=== PATIENT | female | born 1945 | race Hispanic/Latino ===

== ENCOUNTER 2017-01-07 19:07 | Inpatient (IN) | payer SELFPAY ==
[~2017-01-07] VITALS: Ht 154.9 cm; Wt 73.6 kg
[2017-01-07] VITALS (11 sets, daily range): BP systolic 74–128; BP diastolic 37–74
[2017-01-07] MEDS ORDERED: NS IV 1000 ML 1,000 ML IV ONE ×3 (19:23→20:06)
[2017-01-07 19:37] LABS: BASOPHILS % (AUTO) 0 % (0-10); EOSINOPHILS % (AUTO) 0 % (0-10); LYMPHOCYTES # (AUTO) 1.1 X 10^3 (1.0-4.0); LYMPHOCYTES % (AUTO) 50 % (12-44); MEAN CORPUSCULAR HEMOGLOBIN 33 PG (25-34); MEAN CORPUSCULAR HGB CONC 32 G/DL (32-36); MEAN CORPUSCULAR VOLUME 101 FL (80-99); MEAN PLATELET VOLUME 9.7 FL (7.4-10.4); MONOCYTES % (AUTO) 1 % (0-12); NEUTROPHILS # (AUTO) 1.1 X 10^3 (1.8-7.8); NEUTROPHILS % (AUTO) 50 % (42-75); PLATELET COUNT 161 10^3/uL (130-400); RED BLOOD COUNT 4.21 10^6/uL (4.35-5.85); RED CELL DISTRIBUTION WIDTH 14.6 % (10.0-14.5); WHITE BLOOD COUNT 2.1 10^3/uL (4.3-11.0)
[2017-01-07 19:38] LABS: ABG BASE EXCESS -4.8 MMOL/L (-2.5-2.5); ABG HCO3 19 MMOL/L (23-27); ABG OXYGEN SATURATION 100 % (94-100); ABG PCO2 32 MMHG (35-45); ABG PO2 214 MMHG (79-93); ABG TCO2 19.7 MMOL/L (21.0-31.0)
[2017-01-07 19:39] LABS: ALLENS TEST POSITIVE; PATIENT TEMP 101.6
[2017-01-07] MEDS ORDERED: ROCURONIUM 50 MG/5 ML (ZEMURON) VIAL IV ONE ×2 (19:40→20:30)
[2017-01-07] MEDS ORDERED: MIDAZOLAM 5 MG/5 ML (VERSED) VIAL INJ ONE (19:40)
[2017-01-07] MEDS ORDERED: SODIUM BICARB 8.4% 50 MEQ/50 ML (ABBOTT) SYR ONE (19:43)
[2017-01-07] MEDS ORDERED: NS (IVPB) 50 ML ONE (19:44)
[2017-01-07] MEDS ORDERED: cefTRIAXone 1 GM (ROCEPHIN) VIAL ONE (19:44)
[2017-01-07] MEDS ORDERED: ACETAMINOPHEN 650 MG SUPP (TYLENOL) PR ONE (19:45)
[2017-01-07 20:09] LABS: INR 1.1 (0.8-1.4)
[2017-01-07 20:11] LABS: KETONES,URINE 1+ (NEGATIVE); LEUKOCYTE ESTERASE ,URINE 3+ (NEGATIVE); NITRITE,URINE POSITIVE (NEGATIVE); PH,URINE 6.5 (5-9); PROTEIN,URINE 4+ (NEGATIVE); UROBILINOGEN,URINE 4 MG/DL (NORMAL)
--- NOTE | 2017-01-07 20:15 | ED General ---
General Chief Complaint: Respiratory Problems Stated Complaint: BACK AND ABD PAIN Nursing Triage Note: BROUGHT IN BY FAMILY WITH LABORED RESPIRATIONS, FEVER SINCE 0600 01/07/17. FAMILY REPORTS LOWER ABDOMINAL PAIN STARTING 01/06/17 Nursing Sepsis Screen: Possible Severe Sepsis Risk Source of Information: Family Exam Limitations: Language Barrier, Other (PT IS OBTUNDED AND FAMILY MEMBERS SPEAK MINIMAL GERMAN) History of Present Illness Time Seen by Provider: 19:17 Initial Comments PT ARRIVES VIA POV FROM HOME FAMILY REPORT THAT PT HAS HAD LOWER ABDOMINAL PAIN AND LOWER BACK PAIN SINCE YESTERDAY WAS SEEN AT [facility] TODAY FOR THIS BUT FAMILY REPORTS THAT NO TESTS WERE DONE AND NO RX'S WERE GIVEN FAMILY REPORT THAT SHE HAS BEEN COLD ALL DAY NO OTHER INFORMATION IS OBTAINABLE FAMILY REPORT HER ONLY MEDICAL PROBLEM IS DIABETES, AND DO NOT KNOW WHAT MEDICATION SHE TAKES FOR IT. PT IS OBTUNDED AND IN RESPIRATORY DISTRESS WITH SNOROUS AND VERY LABORED BREATHING ON ARRIVAL Allergies and Home Medications Allergies Coded Allergies: No Known Drug Allergies (Unverified , 01/07/17) Constitutional: see HPI, chills, other (NO INFORMATION IS OBTAINABLE FROM PT) Gastrointestinal: abdominal pain Musculoskeletal: see HPI, back pain Past Rdvmpdu-Neklnp-Lmizza Hx Patient Social History Alcohol Use: Denies Use Recreational Drug Use: No Smoking Status: Never a Smoker Recent Foreign Travel: No Contact w/Someone Who Travel: No Recent Infectious Disease Expo: No Recent Hopitalizations: No Immunizations Up To Date Tetanus Booster (TDap): Unknown Seasonal Allergies Seasonal Allergies: No Surgeries HX Surgeries: Yes (UNKNOWN ABDOMINAL SURGERY--HAS LOW ABDOMEN MIDLINE SCAR) Respiratory Hx Respiratory Disorders: No Cardiovascular Hx Cardiac Disorders: No Neurological Hx Neurological Disorders: No 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 Genitourinary Hx Genitourinary Disorders: No Gastrointestinal Hx Gastrointestinal Disorders: No Musculoskeletal Hx Musculoskeletal Disorders: No Endocrine Hx Endocrine Disorders: Yes Endocrine Disorders: Diabetes, Insulin dep HEENT HX ENT Disorders: No Cancer Hx Cancer: No Psychosocial Hx Psychiatric Problems: No Integumentary HX Skin/Integumentary Disorder: No Blood Transfusions Hx Blood Disorders: No Physical Exam Vital Signs Vital Sign - Last 12Hours 01/07/17 01/07/17 19:21 19:52 Temp 101.6 Pulse 122 Resp 36 B/P (MAP) 129/63 Pulse Ox 84 O2 Delivery Nonrebreather O2 Flow Rate 15.00 FiO2 60 Capillary Refill : Greater Than 3 Seconds General Appearance: Severe Distress, Other (PT OBTUNDED WITH SNOROUS AND VERY LABORED BREATHING. PT BEGAN TO VOMIT SHORTLY AFTER ARRIVAL AND WAS HAVING DECORTICATE POSTURING VS TONIC-SEIZURE ACTIVITY. ) HEENT: Other (DRY ORAL MUCOSA. DENTURES IN PLACE) Respiratory: Respiratory Distress Cardiovascular: Tachycardia Gastrointestinal: Soft Extremity: No Pedal Edema Neurologic/Psychiatric: Other (OBTUNDED WITH DECORTICATE POSTURING VS TONIC SEIZURE ACTIVITY) Skin: No Rash, Other (VERY WARM. ) Focused Exam Lactic Acid Level Laboratory Tests Test 01/07/17 19:50 Lactic Acid Level 6.78 MMOL/L (0.50-2.00) *H Date of ETT Placement: Jan 07, 2017 Intubation Method: orotracheal Tube Size: 7.00 Medications: Rocuronium, Versed Positive End Tide CO2: Yes Breath Sounds after Intubation: bilateral-equal Intubation Complications: no complications Post Intubation Xray: Yes Progress/Xray Impression: ET TUBE AND NG TUBE IN PLACE Progress PT HAD VOMITED PRIOR TO BEING INTUBATED. PT SUCTIONED VIGOROUSLY BEFORE INTUBATION, AND WAS ALSO SUCTIONED VIA ET TUBE POST INTUBATION, WITH MOSTLY CLEAR MUCOUS RETURNED FROM ET TUBE. O2 SATS 100% WITH BAGGING PRE AND POST INTUBATION, AND REMAINED 100% AFTER VENTILATOR PLACED. Progress/Results/Core Measures Results/Orders Lab Results Laboratory Tests Test 01/07/17 19:20 01/07/17 19:27 01/07/17 19:31 01/07/17 19:50 Range/Units Glucometer 269 H 70-110 MG/DL White Blood Count 2.1 L 4.3-11.0 10^3/uL Red Blood Count 4.21 L 4.35-5.85 10^6/uL Hemoglobin 13.7 11.5-16.0 G/DL Hematocrit 42 35-52 % Mean Corpuscular Volume 101 H 80-99 FL Mean Corpuscular Hemoglobin 33 25-34 PG Mean Corpuscular Hemoglobin Concent 32 32-36 G/DL Red Cell Distribution Width 14.6 H 10.0-14.5 % Platelet Count 161 130-400 10^3/uL Mean Platelet Volume 9.7 7.4-10.4 FL Neutrophils (%) (Auto) 50 42-75 % Lymphocytes (%) (Auto) 50 H 12-44 % Monocytes (%) (Auto) 1 0-12 % Eosinophils (%) (Auto) 0 0-10 % Basophils (%) (Auto) 0 0-10 % Neutrophils # (Auto) 1.1 L 1.8-7.8 X 10^3 Lymphocytes # (Auto) 1.1 1.0-4.0 X 10^3 Monocytes # (Auto) 0.0 0.0-1.0 X 10^3 Eosinophils # (Auto) 0.0 0.0-0.3 10^3/uL Basophils # (Auto) 0.0 0.0-0.1 10^3/uL Blood Gas Puncture Site RIGHT RADIAL Blood Gas Patient Temperature 101.6 Arterial Blood pH 7.40 7.37-7.43 Arterial Blood Partial Pressure CO2 32 L 35-45 MMHG Arterial Blood Partial Pressure O2 214 H 79-93 MMHG Arterial Blood HCO3 19 L 23-27 MMOL/L Arterial Blood Total CO2 19.7 L 21.0-31.0 MMOL/L Arterial Blood Oxygen Saturation 100 94-100 % Arterial Blood Base Excess -4.8 L -2.5-2.5 MMOL/L Kaushal Test POSITIVE Blood Gas Ventilator Setting NO Blood Gas Inspired Oxygen 15 Prothrombin Time 14.0 12.2-14.7 SEC INR Comment 1.1 0.8-1.4 Activated Partial Thromboplast Time 26 24-35 SEC Sodium Level 137 135-145 MMOL/L Potassium Level 4.4 3.6-5.0 MMOL/L Chloride Level 100 98-107 MMOL/L Carbon Dioxide Level 18 L 21-32 MMOL/L Anion Gap 19 H 5-14 MMOL/L Blood Urea Nitrogen 21 H 7-18 MG/DL Creatinine 0.97 0.60-1.30 MG/DL Estimat Glomerular Filtration Rate 57 BUN/Creatinine Ratio 22 H 0-20 Glucose Level 303 H 70-105 MG/DL Lactic Acid Level 6.78 *H 0.50-2.00 MMOL/L Calcium Level 8.6 8.5-10.1 MG/DL Magnesium Level 1.7 L 1.8-2.4 MG/DL Total Bilirubin 2.4 H 0.1-1.0 MG/DL Aspartate Amino Transf (AST/SGOT) 47 H 5-34 U/L Alanine Aminotransferase (ALT/SGPT) 34 0-55 U/L Alkaline Phosphatase 118 40-136 U/L Total Creatine Kinase 32 29-168 U/L Creatine Kinase MB 0.6 <6.6 NG/ML Troponin I < 0.30 <0.30 NG/ML Total Protein 7.8 6.4-8.2 GM/DL Albumin 3.9 3.2-4.5 GM/DL Amylase Level 67 25-125 U/L Lipase 23 8-78 U/L TSH [place] Testing 1.30 0.35-4.94 UIU/ML Test 01/07/17 20:05 01/07/17 20:25 Range/Units Urine Color CASEY H Urine Clarity SLIGHTLY CLOUDY Urine pH 6.5 5-9 Urine Specific [place] 1.010 L 1.016-1.022 Urine Protein 4+ NEGATIVE Urine Glucose (UA) 2+ H NEGATIVE Urine Ketones 1+ H NEGATIVE Urine Nitrite POSITIVE H NEGATIVE Urine Bilirubin 2+ H NEGATIVE Urine Urobilinogen 4 H NORMAL MG/DL Urine Leukocyte Esterase 3+ H NEGATIVE Urine RBC (Auto) 5+ H NEGATIVE Urine RBC 5-10 H /HPF Urine WBC TNTC H /HPF Urine Squamous Epithelial Cells NONE /HPF Urine Crystals PRESENT H /LPF Urine Amorphous Sediment MOD JEFFY URATES H /LPF Urine Bacteria LARGE H /HPF Urine Casts NONE /LPF Urine Mucus SMALL H /LPF Urine Culture Indicated YES Blood Gas Puncture Site RIGHT RADIAL Blood Gas Patient Temperature 102.9 Arterial Blood pH 7.37 7.37-7.43 Arterial Blood Partial Pressure CO2 43 35-45 MMHG Arterial Blood Partial Pressure O2 188 H 79-93 MMHG Arterial Blood HCO3 24 23-27 MMOL/L Arterial Blood Total CO2 25.0 21.0-31.0 MMOL/L Arterial Blood Oxygen Saturation 100 94-100 % Arterial Blood Base Excess -0.2 -2.5-2.5 MMOL/L Kaushal Test POSITIVE Blood Gas Ventilator Setting YES Blood Gas Inspired Oxygen 60% My Orders Orders - ALEJANDRO PRINCE DO Accucheck Stat ONCE (01/07/17 19:23) Saline Lock/Iv-Start (01/07/17 19:23) Ekg Tracing (01/07/17 19:23) Catheter(Urinary) Insert & Ass 03,15 (01/07/17 19:23) O2 (01/07/17 19:23) Monitor-Rhythm Ecg Trace Only (01/07/17 19:23) Amylase (01/07/17 19:23) Arterial Blood Gas (01/07/17 19:23) Cbc With Automated Diff (01/07/17:23) Comprehensive Metabolic Panel (01/07/17:23) Creatine Kinase (01/07/17 19:23) Creatine Kinase Mb (01/07/17 19:23) Lactic Acid Analyzer (01/07/17:23) Lipase (01/07/17:23) Magnesium (01/07/17:) Protime With Inr (01/07/17:) Partial Thromboplastin Time (01/07/17:23) Thyroid Analyzer (01/07/17:) Troponin I (01/07/17:) Ua Culture If Indicated (01/07/17:) Blood Culture (01/07/17:23) Chest 1 View, Ap/Pa Only (01/07/17:23) Rt Request For Service (01/07/17:23) Saline Lock/Iv-Start (01/07/17 19:23) Ns Iv 1000 Ml (Sodium Chloride 0.9%) (01/07/17 19:23) Ng Tube Insert & Assessment (01/07/17 19:43) Acetaminophen Suppository (Tylenol Suppo (01/07/17 19:45) Sodium Bicarbonate 8.4% Syr (Sodium Bica (01/07/17 19:43) Ceftriaxone Injection (Rocephin Injectio (01/07/17 19:44) Ns (Ivpb) (Sodium Chloride 0.9% Ivpb Bag (01/07/17 19:44) Saline Lock/Iv-Start (01/07/17 20:06) Ns Iv 1000 Ml (Sodium Chloride 0.9%) (01/07/17 20:06) Saline Lock/Iv-Start (01/07/17 20:06) Ns Iv 1000 Ml (Sodium Chloride 0.9%) (01/07/17 20:06) Arterial Blood Gas (01/07/17 20:07) Midazolam Injection (Versed Injection) (01/07/17 20:30) Rocuronium Injection (Zemuron Injection) (01/07/17 20:30) Urine Culture (01/07/17 20:05) Magnesium 1 Gm/100 Ml Ivpb (Magnesium Grewal (01/07/17 20:45) Medications Given in ED Current Medications Medications Dose Ordered Sig/Abhishek Route Start Time Stop Time Status Last Admin Dose Admin Acetaminophen 1,300 mg ONCE ONCE FL 01/07/17 19:45 01/07/17 19:46 DC 01/07/17 19:47 1,300 MG Ceftriaxone Sodium 1,000 mg STK-MED ONCE .ROUTE 01/07/17 19:44 01/07/17 19:50 DC 01/07/17 19:55 1,000 MG Midazolam HCl 8 mg ONCE ONCE IVP 01/07/17 20:30 01/07/17 20:31 DC 01/07/17 19:32 8 MG Rocuronium [place] 40 mg ONCE ONCE IV 01/07/17 20:30 01/07/17 20:31 DC 01/07/17 19:32 40 MG Sodium Bicarbonate 50 meq STK-MED ONCE .ROUTE 01/07/17 19:43 01/07/17 19:49 DC 01/07/17 19:48 50 MEQ Sodium Chloride 50 ml @ ud STK-MED ONCE .ROUTE 01/07/17 19:44 01/07/17 19:50 DC 01/07/17 19:55 100 MLS/HR Sodium Chloride 1,000 ml @ 0 mls/hr Q0M ONCE IV 01/07/17 19:23 01/07/17 19:27 DC 01/07/17 19:45 0 MLS/HR Sodium Chloride 1,000 ml @ 0 mls/hr Q0M ONCE IV 01/07/17 20:06 01/07/17 20:08 DC 01/07/17 20:08 0 MLS/HR Sodium Chloride 1,000 ml @ 0 mls/hr Q0M ONCE IV 01/07/17 20:06 01/07/17 20:08 DC 01/07/17 20:08 0 MLS/HR Vital Signs/I&O Vital Sign - Last 12Hours 01/07/17 01/07/17 01/07/17 01/07/17 19:21 19:21 19:47 19:52 Temp 101.6 101.6 Pulse 122 154 Resp 36 14 B/P (MAP) 129/63 Pulse Ox 84 84 100 O2 Delivery Nonrebreather Non Rebreather O2 Flow Rate 15.00 15.00 FiO2 60 Blood Pressure Mean: 85 Progress Note : Progress Note PT'S BP REMAINED > 90 SYSTOLIC DURING ER STAY HEART RATE DOWN TO 110-120'S AFTER FLUID BOLUSES. DISCUSSED THE CRITICAL CONDITION OF PT WITH HER FAMILY. ALSO INFORMED THEM THAT SHE COULD POSSIBLY FROM THIS. THEY APPEAR TO UNDERSTAND. PT IS TO BE A FULL CODE. PASTORAL CARE CALLED. ECG Initial ECG Impression Time: 19:55 Initial ECG Rate: 152 Initial ECG Rhythm: S.Tach Initial ECG Impression: SVT Initial ECG Comparisson: No Previous ECG Available Diagnostic Imaging Comments CXR--ET TUBE AND NG TUBE IN PLACE, NO ACUTE PROCESS. PER RADIOLOGIST REPORT @ 2050 Reviewed: Reviewed by Me Critical Care Note Critical Care Total Time (minutes) 1 HOUR Departure Communication Progress Notes 2019--SPOKE WITH DR. HART, SMELTING ENGINEER FOR [facility]. ACCEPTS PT FOR ADMIT Impression Impression: Primary Impression: Severe sepsis with septic shock Additional Impressions: UTI (urinary tract infection) Dehydration Diabetes Hypomagnesemia Acute respiratory failure Neutropenia Lactic acidosis Disposition: ADMITTED INPATIENT Condition: Critical Decision to Admit Reason: Admit from ER (General) Decision to Admit/Date: Jan 07, 2017 Time/Decision to Admit Time: 20:20 Departure-Patient Inst. Referrals: NO,LOCAL PHYSICIAN (PCP) Primary Care Physician ALEJANDRO PRINCE DO Jan 07, 2017 20:14
[2017-01-07 20:17] LABS: WBC,URINE TNTC /HPF
[2017-01-07 20:21] LABS: ALANINE AMINOTRANSFERASE 34 U/L (0-55); ALBUMIN 3.9 GM/DL (3.2-4.5); AMYLASE 67 U/L (25-125); ANION GAP 19 MMOL/L (5-14); ASPARTATE AMINO TRANSFERASE 47 U/L (5-34); BILIRUBIN,TOTAL 2.4 MG/DL (0.1-1.0); BLOOD UREA NITROGEN 21 MG/DL (7-18); BUN/CREATININE RATIO 22 (0-20); CALCIUM 8.6 MG/DL (8.5-10.1); CARBON DIOXIDE 18 MMOL/L (21-32); CHLORIDE 100 MMOL/L (98-107); CREATINE KINASE 32 U/L (29-168); CREATININE SERUM 0.97 MG/DL (0.60-1.30); GFR ESTIMATED 57; GLUCOSE 303 MG/DL (70-105); HEMOLYSIS 43 (-100-29); LIPASE 23 U/L (8-78); LIPEMIA 3 (-100-49); MAGNESIUM 1.7 MG/DL (1.8-2.4); POTASSIUM 4.4 MMOL/L (3.6-5.0); SODIUM 137 MMOL/L (135-145); TOTAL PROTEIN 7.8 GM/DL (6.4-8.2)
--- NOTE | 2017-01-07 20:23 | Diagnostic Imaging Report ---
INDICATION: Intubated, shortness of breath COMPARISON: None FINDINGS: Single view of the chest demonstrates ET tube in the midtrachea. There is an NG tube in the stomach. The lungs are clear. There is no pneumothorax, effusion or infiltrate. There is no overt pulmonary edema. IMPRESSION: Well-positioned support lines. No acute cardiopulmonary findings. Dictated by: Dictated on workstation # [id number]
[2017-01-07] MEDS ORDERED: MIDAZOLAM 5 MG/5 ML (VERSED) VIAL IVP ONE ×2 (20:30→21:15)
[2017-01-07 20:40] LABS: TROPONIN I < 0.30 NG/ML (<0.30)
[2017-01-07 20:45] LABS: ABG BASE EXCESS -0.2 MMOL/L (-2.5-2.5); ABG HCO3 24 MMOL/L (23-27); ABG OXYGEN SATURATION 100 % (94-100); ABG PCO2 43 MMHG (35-45); ABG PH 7.37 (7.37-7.43); ABG PO2 188 MMHG (79-93); ALLENS TEST POSITIVE
[2017-01-07 20:46] LABS: PATIENT TEMP 102.9
[2017-01-07] MEDS: MAGNESIUM 1 GM/100 ML IVPB 100 ML IV SCH ×2 (20:46→22:30)
[2017-01-07] MEDS ORDERED: NS IV 1000 ML 1,000 ML IV PRN (21:40)
[2017-01-07] MEDS ORDERED: ACETAMINOPHEN 650 MG SUPP (TYLENOL) PR PRN (21:45)
[2017-01-07] MEDS ORDERED: PHARMACY TO DOSE IV SCH (21:45)
[2017-01-07] MEDS ORDERED: cefTRIAXone INJECTION 1,000 MG in NS (IVPB) 50 ML IV SCH (21:45)
[2017-01-07] MEDS ORDERED: NS IV 1000 ML 2,500 ML IV PRN (21:45)
[2017-01-07] MEDS ORDERED: KETOROLAC 30 MG/ML VIAL IV ONE (22:00)
[2017-01-07] MEDS ORDERED: PANTOPRAZOLE 40 MG/10 ML (PROTONIX) VIAL ONE (22:11)
[2017-01-07] MEDS: PANTOPRAZOLE 40 MG/10 ML (PROTONIX) VIAL IV SCH (22:21)
[2017-01-07] MEDS: NS IV 1000 ML 1,000 ML IV SCH (22:29)
[2017-01-07] MEDS ORDERED: ALBUMIN 5% 12.5 GM/250 ML 500 ML IV ONE (22:31)
[2017-01-07] MEDS ORDERED: MAGNESIUM 1 GM/D5W 100 ML IVPB IV SCH (23:00)
[2017-01-07 23:07] LABS: ABG BASE EXCESS -0.2 MMOL/L (-2.5-2.5); ABG HCO3 24 MMOL/L (23-27); ABG OXYGEN SATURATION 100 % (94-100); ABG PCO2 36 MMHG (35-45); ABG PH 7.43 (7.37-7.43); ABG PO2 162 MMHG (79-93); ABG TCO2 24.7 MMOL/L (21.0-31.0)
[2017-01-07 23:10] LABS: ALLENS TEST YES-POS; PATIENT TEMP 102
[2017-01-07] MEDS: NOREPINEPHRINE 4 MG in D5W 250 ML (IVPB) 250 ML IV SCH (23:28)
[2017-01-08] VITALS (20 sets, daily range): BP systolic 53–141; BP diastolic 28–72
[2017-01-08] MEDS: VANCOMYCIN 1 GM/NS 250 ML IVPB IV SCH ×4 (00:25→09:34)
--- NOTE | 2017-01-08 00:41 | Consultation ---
History of Present Illness History of Present Illness Patient Consulted On(daljit/time) 01/07/17 23:35 Date of Admission History of Present Illness consult requested by Dr. Tamayo for central line placement. Patient is a 71 year old female who is intubated. She came and it was reported she was having lower abdominal pain since 01/06. Started having fever and not feeling any better today. Came into ER today and had acute respiratory failure had to be intubated and hypotensive. Patient on pressors. Patient unable to communicate any history. Patient needing central line placement for pressor support. Family present and limited knowledge of medical history, platform builder used and consent obtained for central line placement. Allergies and Home Medications Allergies Coded Allergies: No Known Drug Allergies (Unverified , 01/07/17) Past Tpinvka-Qipstg-Uhcrgq Hx Patient Social History Alcohol Use: Denies Use Recreational Drug Use: No Smoking Status: Never a Smoker Recent Foreign Travel: No Contact w/Someone Who Travel: No Recent Infectious Disease Expo: No Recent Hopitalizations: No Immunizations Up To Date Tetanus Booster (TDap): Unknown Seasonal Allergies Seasonal Allergies: No Surgeries HX Surgeries: Yes (UNKNOWN ABDOMINAL SURGERY--HAS LOW ABDOMEN MIDLINE SCAR) Respiratory Hx Respiratory Disorders: No Cardiovascular Hx Cardiac Disorders: No Neurological Hx Neurological Disorders: No 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 Genitourinary Hx Genitourinary Disorders: No Gastrointestinal Hx Gastrointestinal Disorders: No Musculoskeletal Hx Musculoskeletal Disorders: No Endocrine Hx Endocrine Disorders: Yes Endocrine Disorders: Diabetes, Insulin dep HEENT HX ENT Disorders: No Cancer Hx Cancer: No Psychosocial Hx Psychiatric Problems: No Integumentary HX Skin/Integumentary Disorder: No Blood Transfusions Hx Blood Disorders: No Family Medical History Significant Family History: No Pertinent Family Hx Review of Systems-General Date Seen by Provider: Jan 07, 2017 Time Seen by Provider: 23:35 ROS-Unable to Obtain: patient intubated Physical Exam-General Problems Physical Exam Vital Signs Vital Sign - Last 12Hours 01/07/17 01/07/17 19:21 19:52 Temp 101.6 Pulse 122 Resp 36 B/P (MAP) 129/63 Pulse Ox 84 O2 Delivery Nonrebreather O2 Flow Rate 15.00 FiO2 60 Capillary Refill : Less Than 3 Seconds General Appearance: other (intubated) HEENT: PERRL/EOMI Neck: supple Respiratory: lungs clear Cardiovascular: regular rate, rhythm Gastrointestinal: soft, No distended, No guarding, No rebound, No tenderness Extremities: non-tender, normal inspection Neurologic/Psychiatric: No alert, other (intubated) Skin: cool (dry) Data Review Labs Laboratory Tests 01/07/17 19:20: Glucometer 269H 01/07/17 19:27: White Blood Count 2.1L, Red Blood Count 4.21L, Hemoglobin 13.7, Hematocrit 42, Mean Corpuscular Volume 101H, Mean Corpuscular Hemoglobin 33, Mean Corpuscular Hemoglobin Concent 32, Red Cell Distribution Width 14.6H, Platelet Count 161, Mean Platelet Volume 9.7, Neutrophils (%) (Auto) 50, Lymphocytes (%) (Auto) 50H , Monocytes (%) (Auto) 1, Eosinophils (%) (Auto) 0, Basophils (%) (Auto) 0, Neutrophils # (Auto) 1.1L, Lymphocytes # (Auto) 1.1, Monocytes # (Auto) 0.0, Eosinophils # (Auto) 0.0, Basophils # (Auto) 0.0 01/07/17 19:31: Blood Gas Puncture Site RIGHT RADIAL, Blood Gas Patient Temperature 101.6, Arterial Blood pH 7.40, Arterial Blood Partial Pressure CO2 32L, Arterial Blood Partial Pressure O2 214H, Arterial Blood HCO3 19L, Arterial Blood Total CO2 19.7L, Arterial Blood Oxygen Saturation 100, Arterial Blood Base Excess -4.8L, Kaushal Test POSITIVE, Blood Gas Ventilator Setting NO, Blood Gas Inspired Oxygen 15 01/07/17 19:50: Prothrombin Time 14.0, INR Comment 1.1, Activated Partial Thromboplast Time 26, Sodium Level 137, Potassium Level 4.4, Chloride Level 100, Carbon Dioxide Level 18L, Anion Gap 19H, Blood Urea Nitrogen 21H, Creatinine 0.97, Estimat Glomerular Filtration Rate 57, BUN/Creatinine Ratio 22H, Glucose Level 303H, Lactic Acid Level 6.78*H, Calcium Level 8.6, Magnesium Level 1.7L, Total Bilirubin 2.4H, Aspartate Amino Transf (AST/SGOT) 47H, Alanine Aminotransferase (ALT/SGPT) 34, Alkaline Phosphatase 118, Total Creatine Kinase 32, Creatine Kinase MB 0.6, Troponin I < 0.30, Total Protein 7.8, Albumin 3.9, Amylase Level 67, Lipase 23, TSH [place] Testing 1.30 01/07/17 20:05: Urine Color AMBERH, Urine Clarity SLIGHTLY CLOUDY, Urine pH 6.5, Urine Specific [place] 1.010L, Urine Protein 4+, Urine Glucose (UA) 2+H, Urine Ketones 1+H, Urine Nitrite POSITIVEH, Urine Bilirubin 2+H, Urine Urobilinogen 4H, Urine Leukocyte Esterase 3+H, Urine RBC (Auto) 5+H, Urine RBC 5-10H, Urine WBC TNTCH, Urine Squamous Epithelial Cells NONE, Urine Crystals PRESENTH, Urine Amorphous Sediment MOD JEFFY URATESH, Urine Bacteria LARGEH, Urine Casts NONE, Urine Mucus SMALLH, Urine Culture Indicated YES 01/07/17 20:25: Blood Gas Puncture Site RIGHT RADIAL, Blood Gas Patient Temperature 102.9, Arterial Blood pH 7.37, Arterial Blood Partial Pressure CO2 43, Arterial Blood Partial Pressure O2 188H, Arterial Blood HCO3 24, Arterial Blood Total CO2 25.0 , Arterial Blood Oxygen Saturation 100, Arterial Blood Base Excess -0.2, Kaushal Test POSITIVE, Blood Gas Ventilator Setting YES, Blood Gas Inspired Oxygen 60% 01/07/17 22:13: Lactic Acid Level 3.89*H 01/07/17 22:52: Blood Gas Puncture Site R RAD, Blood Gas Patient Temperature 102, Arterial Blood pH 7.43, Arterial Blood Partial Pressure CO2 36, Arterial Blood Partial Pressure O2 162H, Arterial Blood HCO3 24, Arterial Blood Total CO2 24.7, Arterial Blood Oxygen Saturation 100, Arterial Blood Base Excess -0.2, Kaushal Test YES-POS, Blood Gas Ventilator Setting YES, Blood Gas Inspired Oxygen 40% FIO2 Assessment/Plan Assessment/Plan Assessment/Plan severe sepsis c septic shock, UTI, DM, acute resp failure requiring pressure support need central line consent obtained and plan placement continued medical management MAHI SALDIVAR DO Jan 08, 2017 00:41
--- NOTE | 2017-01-08 00:46 | Progress Note-Post Operative ---
Post-Operative Progess Note Surgeon (s)/Statistical Methods Professor (s) Surgeon MAHI SALDIVAR DO Statistical Methods Professor: na Pre-Operative Diagnosis severe sepsis c septic shock Post-Operative Diagnosis same Procedure & Operative Findings Date of Procedure 01/08/17 Procedure Performed/Findings attempted right IJ central line, left femoral central line placement using u/s guidance Anesthesia Type local Estimated Blood Loss Estimated blood loss (mL): minimal Specimens/Packing Specimens Removed none MAHI SALDIVAR DO Jan 08, 2017 00:46
--- NOTE | 2017-01-08 01:22 | Anesthesia-Procedure Note ---
Procedure Start/Stop Time Date of Procedure: Jan 07, 2017 Start Time: 23:45 Stop Time: 00:45 Procedures/Interventions Arterial Line Catheter: 20G Type: Radial Location: Left Procedure: prepped, draped in sterile fashion, good wave-form was obtained, patient tolerated procedure well, no immediate complications, post procedure area cleaned, post procedure dressing applied TR ROTH CRNA Jan 08, 2017 01:22
[2017-01-08 01:32] LABS: ABG BASE EXCESS -4.9 MMOL/L (-2.5-2.5); ABG HCO3 19 MMOL/L (23-27); ABG OXYGEN SATURATION 99 % (94-100); ABG PCO2 36 MMHG (35-45); ABG PH 7.35 (7.37-7.43); ABG PO2 157 MMHG (79-93); ABG TCO2 20.5 MMOL/L (21.0-31.0); ALLENS TEST ART LINE; PATIENT TEMP 100.9
[2017-01-08] MEDS: ALBUMIN 5% 12.5 GM/250 ML 250 ML IV SCH ×2 (01:35→02:31)
[2017-01-08] MEDS: NS IV 1000 ML 1,000 ML IV SCH ×6 (01:41→14:34)
[2017-01-08] MEDS: inSUlin (REGULAR) HUMAN 1 UNIT/0.01 ML (CHARGE PER UNIT) SC SCH ×3 (01:42→10:13)
[2017-01-08] MEDS ORDERED: VASOPRESSIN INJECTION 20 UNIT/ML VIAL ONE ×2 (01:51→07:41)
[2017-01-08] MEDS ORDERED: NS (IVPB) 50 ML ONE ×2 (01:52→07:41)
[2017-01-08 02:18] LABS: ALBUMIN 2.8 GM/DL (3.2-4.5); POTASSIUM 2.9 MMOL/L (3.6-5.0)
[2017-01-08 02:30] LABS: TROPONIN I 3.26 NG/ML (<0.30)
[2017-01-08] MEDS ORDERED: PROPOFOL DRIP (ICU) 100 ML IV ONE (03:36)
[2017-01-08] MEDS ORDERED: PROPOFOL DRIP (ICU) 100 ML IV SCH (03:40)
[2017-01-08] MEDS: NOREPINEPHRINE 4 MG in D5W 250 ML (IVPB) 250 ML IV SCH ×2 (04:28→10:14)
[2017-01-08 04:32] LABS: ABG BASE EXCESS -10.7 MMOL/L (-2.5-2.5); ABG OXYGEN SATURATION 99 % (94-100); ABG PCO2 31 MMHG (35-45); ABG PO2 143 MMHG (79-93); ABG TCO2 15.3 MMOL/L (21.0-31.0)
[2017-01-08 04:35] LABS: ALLENS TEST ART LINE; PATIENT TEMP 99.5
[2017-01-08 04:36] LABS: ABG PH 7.29 (7.37-7.43)
[2017-01-08 04:37] LABS: ABG HCO3 14 MMOL/L (23-27)
[2017-01-08 04:45] LABS: BASOPHILS % (AUTO) 0 % (0-10); EOSINOPHILS # (AUTO) 0.2 10^3/uL (0.0-0.3); EOSINOPHILS % (AUTO) 2 % (0-10); LYMPHOCYTES # (AUTO) 1.1 X 10^3 (1.0-4.0); LYMPHOCYTES % (AUTO) 12 % (12-44); MEAN CORPUSCULAR HEMOGLOBIN 33 PG (25-34); MEAN CORPUSCULAR HGB CONC 33 G/DL (32-36); MEAN CORPUSCULAR VOLUME 100 FL (80-99); MEAN PLATELET VOLUME 10.4 FL (7.4-10.4); MONOCYTES # (AUTO) 0.4 X 10^3 (0.0-1.0); MONOCYTES % (AUTO) 5 % (0-12); NEUTROPHILS # (AUTO) 7.2 X 10^3 (1.8-7.8); NEUTROPHILS % (AUTO) 82 % (42-75); PLATELET COUNT 119 10^3/uL (130-400); RED BLOOD COUNT 3.27 10^6/uL (4.35-5.85); RED CELL DISTRIBUTION WIDTH 14.6 % (10.0-14.5); WHITE BLOOD COUNT 8.9 10^3/uL (4.3-11.0)
[2017-01-08 04:48] LABS: INR 1.8 (0.8-1.4); PROTHROMBIN TIME PATIENT 20.5 SEC (12.2-14.7)
[2017-01-08 04:52] LABS: ALBUMIN 3.1 GM/DL (3.2-4.5); BILIRUBIN,TOTAL 3.9 MG/DL (0.1-1.0); CALCIUM 6.8 MG/DL (8.5-10.1); CREATININE SERUM 1.33 MG/DL (0.60-1.30); ICTERUS 2.8 (-100-1.9); MAGNESIUM 2.3 MG/DL (1.8-2.4); PHOSPHORUS 3.2 MG/DL (2.3-4.7); POTASSIUM 3.4 MMOL/L (3.6-5.0); TOTAL PROTEIN 5.3 GM/DL (6.4-8.2)
[2017-01-08] MEDS ORDERED: NS IV 1000 ML 1,000 ML IV SCH (05:30)
[2017-01-08] MEDS ORDERED: SODIUM BICARB 8.4% 50 MEQ/50 ML (ABBOTT) SYR IV ONE ×2 (05:30)
[2017-01-08 05:36] LABS: ANISOCYTOSIS SLIGHT; BAND NEUTROPHILS 26 %; BASOPHILS % (MANUAL) 0 %; EOSINOPHILS % (MANUAL) 0 %; LYMPHOCYTES % (MANUAL) 15 %; METAMYELOCYTES % 2 %; NEUTROPHILS % (MANUAL) 52 %; POLYCHROMASIA SLIGHT
[2017-01-08] MEDS ORDERED: POTASSIUM CL 10MEQ/50ML IVPB 50 ML IV SCH (06:00)
[2017-01-08] MEDS ORDERED: KCL 20 MEQ TAB (K-DUR) PO SCH (06:00)
[2017-01-08] MEDS ORDERED: PIPERACILLIN/TAZOBACTAM 4.5 GM/NS100 ML IVPB IV SCH ×2 (06:00)
[2017-01-08] MEDS ORDERED: MAGNESIUM 1 GM/100 ML IVPB 100 ML IV SCH (06:00)
[2017-01-08] MEDS: POTASSIUM CL 10MEQ/50ML IVPB 50 ML IV SCH ×2 (06:44→07:59)
[2017-01-08] MEDS ORDERED: MULTIVIT W/MINERALS TAB (THERAGRAN M) PO SCH (07:00)
--- NOTE | 2017-01-08 07:06 | History & Physicial (CHS) ---
HPI History of Present Illness: 71-year-old Greenlandic-speaking female presents to [facility] emergency department via private vehicle from her home. She apparently has not been responsive and barely breathing upon arrival. She had been complaining of some lower abdominal pain on the right side the day prior to admission. Apparently she was seen at [facility] on January 07, 2017 but according to family no prescription medications were given. Patient is a known diabetic. Her history is obtained from family as well as what was related from EMS. Source: family, RN/MD Exam Limitations: clinical condition Date seen by provider: Jan 08, 2017 Time Seen by Provider: 06:25 Attending Physician Missael Hart MD PCP No,Local Physician Consult Date of Admission Jan 07, 2017 at 20:34 Home Medications Home Medications Reviewed patient Home Medication Reconciliation Form Allergies Coded Allergies: No Known Drug Allergies (Unverified , 01/07/17) [id number] Hx Patient Social History Alcohol Use: Denies Use Recreational Drug Use: No Smoking Status: Never a Smoker Recent Foreign Travel: No Contact w/other who traveled: No Recent Hopitalizations: No Recent Infectious Disease Expo: No Physical Abuse Screen: No Sexual Abuse: No Immunizations Up To Date Tetanus Booster (TDap): Unknown Family Medical History Significant Family History: No Pertinent Family Hx Family History: Colon cancer 19 FATHER ( FROM PERFORATED APPENDIX) Diabetes mellitus G8 SISTER Review of Systems ([facility]C) Date Seen by Provider: Jan 08, 2017 Time Seen by Provider: 06:25 Constitutional: see HPI Reviewed Test Results Reviewed Test Results Lab Laboratory Tests Test 01/07/17 19:20 01/07/17 19:27 01/07/17 19:31 01/07/17 19:50 Range/Units Glucometer 269 H 70-110 MG/DL White Blood Count 2.1 L 4.3-11.0 10^3/uL Red Blood Count 4.21 L 4.35-5.85 10^6/uL Hemoglobin 13.7 11.5-16.0 G/DL Hematocrit 42 35-52 % Mean Corpuscular Volume 101 H 80-99 FL Mean Corpuscular Hemoglobin 33 25-34 PG Mean Corpuscular Hemoglobin Concent 32 32-36 G/DL Red Cell Distribution Width 14.6 H 10.0-14.5 % Platelet Count 161 130-400 10^3/uL Mean Platelet Volume 9.7 7.4-10.4 FL Neutrophils (%) (Auto) 50 42-75 % Lymphocytes (%) (Auto) 50 H 12-44 % Monocytes (%) (Auto) 1 0-12 % Eosinophils (%) (Auto) 0 0-10 % Basophils (%) (Auto) 0 0-10 % Neutrophils # (Auto) 1.1 L 1.8-7.8 X 10^3 Lymphocytes # (Auto) 1.1 1.0-4.0 X 10^3 Monocytes # (Auto) 0.0 0.0-1.0 X 10^3 Eosinophils # (Auto) 0.0 0.0-0.3 10^3/uL Basophils # (Auto) 0.0 0.0-0.1 10^3/uL Blood Gas Puncture Site RIGHT RADIAL Blood Gas Patient Temperature 101.6 Arterial Blood pH 7.40 7.37-7.43 Arterial Blood Partial Pressure CO2 32 L 35-45 MMHG Arterial Blood Partial Pressure O2 214 H 79-93 MMHG Arterial Blood HCO3 19 L 23-27 MMOL/L Arterial Blood Total CO2 19.7 L 21.0-31.0 MMOL/L Arterial Blood Oxygen Saturation 100 94-100 % Arterial Blood Base Excess -4.8 L -2.5-2.5 MMOL/L Kaushal Test POSITIVE Blood Gas Ventilator Setting NO Blood Gas Inspired Oxygen 15 Prothrombin Time 14.0 12.2-14.7 SEC INR Comment 1.1 0.8-1.4 Activated Partial Thromboplast Time 26 24-35 SEC Sodium Level 137 135-145 MMOL/L Potassium Level 4.4 3.6-5.0 MMOL/L Chloride Level 100 98-107 MMOL/L Carbon Dioxide Level 18 L 21-32 MMOL/L Anion Gap 19 H 5-14 MMOL/L Blood Urea Nitrogen 21 H 7-18 MG/DL Creatinine 0.97 0.60-1.30 MG/DL Estimat Glomerular Filtration Rate 57 BUN/Creatinine Ratio 22 H 0-20 Glucose Level 303 H 70-105 MG/DL Lactic Acid Level 6.78 *H 0.50-2.00 MMOL/L Calcium Level 8.6 8.5-10.1 MG/DL Magnesium Level 1.7 L 1.8-2.4 MG/DL Total Bilirubin 2.4 H 0.1-1.0 MG/DL Aspartate Amino Transf (AST/SGOT) 47 H 5-34 U/L Alanine Aminotransferase (ALT/SGPT) 34 0-55 U/L Alkaline Phosphatase 118 40-136 U/L Total Creatine Kinase 32 29-168 U/L Creatine Kinase MB 0.6 <6.6 NG/ML Troponin I < 0.30 <0.30 NG/ML Total Protein 7.8 6.4-8.2 GM/DL Albumin 3.9 3.2-4.5 GM/DL Amylase Level 67 25-125 U/L Lipase 23 8-78 U/L TSH Cochran Testing 1.30 0.35-4.94 UIU/ML Test 01/07/17 20:05 01/07/17 20:25 01/07/17 22:13 01/07/17 22:52 Range/Units Urine Color CASEY H Urine Clarity SLIGHTLY CLOUDY Urine pH 6.5 5-9 Urine Specific [place] 1.010 L 1.016-1.022 Urine Protein 4+ NEGATIVE Urine Glucose (UA) 2+ H NEGATIVE Urine Ketones 1+ H NEGATIVE Urine Nitrite POSITIVE H NEGATIVE Urine Bilirubin 2+ H NEGATIVE Urine Urobilinogen 4 H NORMAL MG/DL Urine Leukocyte Esterase 3+ H NEGATIVE Urine RBC (Auto) 5+ H NEGATIVE Urine RBC 5-10 H /HPF Urine WBC TNTC H /HPF Urine Squamous Epithelial Cells NONE /HPF Urine Crystals PRESENT H /LPF Urine Amorphous Sediment MOD JEFFY URATES H /LPF Urine Bacteria LARGE H /HPF Urine Casts NONE /LPF Urine Mucus SMALL H /LPF Urine Culture Indicated YES Blood Gas Puncture Site RIGHT RADIAL R RAD Blood Gas Patient Temperature 102.9 102 Arterial Blood pH 7.37 7.43 7.37-7.43 Arterial Blood Partial Pressure CO2 43 36 35-45 MMHG Arterial Blood Partial Pressure O2 188 H 162 H 79-93 MMHG Arterial Blood HCO3 24 24 23-27 MMOL/L Arterial Blood Total CO2 25.0 24.7 21.0-31.0 MMOL/L Arterial Blood Oxygen Saturation 100 100 94-100 % Arterial Blood Base Excess -0.2 -0.2 -2.5-2.5 MMOL/L Kaushal Test POSITIVE YES-POS Blood Gas Ventilator Setting YES YES Blood Gas Inspired Oxygen 60% 40% FIO2 Lactic Acid Level 3.89 *H 0.50-2.00 MMOL/L Test 01/08/17 01:22 01/08/17 01:24 01/08/17 01:30 01/08/17 04:15 Range/Units Potassium Level 2.9 L 3.4 L 3.6-5.0 MMOL/L Lactic Acid Level 4.44 *H 8.04 *H 0.50-2.00 MMOL/L Troponin I 3.26 *H <0.30 NG/ML Albumin 2.8 L 3.1 L 3.2-4.5 GM/DL Blood Gas Puncture Site L [facility] MYLENE Blood Gas Patient Temperature 100.9 Arterial Blood pH 7.35 L 7.37-7.43 Arterial Blood Partial Pressure CO2 36 35-45 MMHG Arterial Blood Partial Pressure O2 157 H 79-93 MMHG Arterial Blood HCO3 19 L 23-27 MMOL/L Arterial Blood Total CO2 20.5 L 21.0-31.0 MMOL/L Arterial Blood Oxygen Saturation 99 94-100 % Arterial Blood Base Excess -4.9 L -2.5-2.5 MMOL/L Kaushal Test ART LINE Blood Gas Ventilator Setting YES Blood Gas Inspired Oxygen 40% Glucometer 232 H 70-110 MG/DL White Blood Count 8.9 4.3-11.0 10^3/uL Red Blood Count 3.27 L 4.35-5.85 10^6/uL Hemoglobin 10.7 #L 11.5-16.0 G/DL Hematocrit 33 L 35-52 % Mean Corpuscular Volume 100 H 80-99 FL Mean Corpuscular Hemoglobin 33 25-34 PG Mean Corpuscular Hemoglobin Concent 33 32-36 G/DL Red Cell Distribution Width 14.6 H 10.0-14.5 % Platelet Count 119 L 130-400 10^3/uL Mean Platelet Volume 10.4 7.4-10.4 FL Neutrophils (%) (Auto) 82 H 42-75 % Lymphocytes (%) (Auto) 12 12-44 % Monocytes (%) (Auto) 5 0-12 % Eosinophils (%) (Auto) 2 0-10 % Basophils (%) (Auto) 0 0-10 % Neutrophils # (Auto) 7.2 1.8-7.8 X 10^3 Lymphocytes # (Auto) 1.1 1.0-4.0 X 10^3 Monocytes # (Auto) 0.4 0.0-1.0 X 10^3 Eosinophils # (Auto) 0.2 0.0-0.3 10^3/uL Basophils # (Auto) 0.0 0.0-0.1 10^3/uL Neutrophils % (Manual) 52 % Lymphocytes % (Manual) 15 % Monocytes % (Manual) 5 % Eosinophils % (Manual) 0 % Basophils % (Manual) 0 % Metamyelocytes % 2 % Band Neutrophils 26 % Toxic Granulation 1+ Polychromasia SLIGHT Anisocytosis SLIGHT Prothrombin Time 20.5 H 12.2-14.7 SEC INR Comment 1.8 H 0.8-1.4 Activated Partial Thromboplast Time 39 H 24-35 SEC Sodium Level 140 135-145 MMOL/L Chloride Level 110 #H 98-107 MMOL/L Carbon Dioxide Level 12 L 21-32 MMOL/L Anion Gap 18 H 5-14 MMOL/L Blood Urea Nitrogen 22 H 7-18 MG/DL Creatinine 1.33 H 0.60-1.30 MG/DL Estimat Glomerular Filtration Rate 40 BUN/Creatinine Ratio 17 0-20 Glucose Level 279 H 70-105 MG/DL Calcium Level 6.8 L 8.5-10.1 MG/DL Phosphorus Level 3.2 2.3-4.7 MG/DL Magnesium Level 2.3 1.8-2.4 MG/DL Total Bilirubin 3.9 H 0.1-1.0 MG/DL Aspartate Amino Transf (AST/SGOT) 278 H 5-34 U/L Alanine Aminotransferase (ALT/SGPT) 129 H 0-55 U/L Alkaline Phosphatase 62 40-136 U/L Total Protein 5.3 L 6.4-8.2 GM/DL Test 01/08/17 04:20 01/08/17 06:50 Range/Units Blood Gas Puncture Site L RAD MYLENE Blood Gas Patient Temperature 99.5 Arterial Blood pH 7.29 *L 7.37-7.43 Arterial Blood Partial Pressure CO2 31 L 35-45 MMHG Arterial Blood Partial Pressure O2 143 H 79-93 MMHG Arterial Blood HCO3 14 *L 23-27 MMOL/L Arterial Blood Total CO2 15.3 L 21.0-31.0 MMOL/L Arterial Blood Oxygen Saturation 99 94-100 % Arterial Blood Base Excess -10.7 L -2.5-2.5 MMOL/L Kaushal Test ART LINE Blood Gas Ventilator Setting YES Blood Gas Inspired Oxygen 40% Radiology NAME: BABITA THOMASON REC#: [id number] PT STATUS: ADM IN : 1945 PHYSICIAN: ALEJANDRO PRINCE DO ADMIT DATE: 01/07/17/ICU Signed Date of Exam: 01/07/17 CHEST 1 VIEW, AP/PA ONLY INDICATION: Intubated, shortness of breath COMPARISON: None FINDINGS: Single view of the chest demonstrates ET tube in the midtrachea. There is an NG tube in the stomach. The lungs are clear. There is no pneumothorax, effusion or infiltrate. There is no overt pulmonary edema. IMPRESSION: Well-positioned support lines. No acute cardiopulmonary findings. Dictated by: Dictated on workstation # [id number] Dict: 01/07/172014 Trans: 01/07/172037 Interpreted by: MSISAEL LOPEZ Electronically signed by: MISSAEL LOPEZ 01/07/172037 Physical Exam-([facility]) Physical Exam Vital Signs VS - Last 72 Hours, by Label 01/06/17 01/07/17 01/07/17 01/07/17 21:03 19:21 19:21 19:47 Temp 101.6 101.6 Pulse 122 Resp 36 B/P (MAP) 129/63 Pulse Ox 100 84 84 O2 Delivery Mechanical Ventilator Nonrebreather Non Rebreather O2 Flow Rate 15.00 15.00 FiO2 60 01/07/17 01/07/17 01/07/17 01/07/17 19:52 20:00 21:00 21:15 Temp 102.5 102.5 Pulse 154 146 147 125 Resp 14 14 13 34 B/P (MAP) 99/38 107/50 Pulse Ox 100 98 91 100 O2 Delivery Mechanical Ventilator Mechanical Ventilator Mechanical Ventilator O2 Flow Rate 60.00 60.00 60.00 FiO2 60 01/07/17 01/07/17 01/07/17 01/07/17 21:18 21:30 21:45 22:00 Temp 102.5 102.7 102.9 Pulse 126 128 124 125 Resp 17 19 B/P (MAP) 92/38 87/39 Pulse Ox 100 100 100 100 O2 Delivery Mechanical Ventilator Mechanical Ventilator Mechanical Ventilator O2 Flow Rate 60.00 60.00 60.00 FiO2 60 01/07/17 01/07/17 01/07/17 01/07/17 22:14 22:15 22:30 22:45 Temp 102.9 102.7 102.5 Pulse 117 114 116 120 Resp B/P (MAP) 76/42 86/37 87/45 Pulse Ox 100 100 100 100 O2 Delivery Mechanical Ventilator Mechanical Ventilator Mechanical Ventilator O2 Flow Rate 40.00 40.00 40.00 FiO2 40 01/07/17 01/07/17 01/08/17 01/08/17 23:00 23:30 00:00 00:13 Temp 102.2 101.8 101.6 Pulse 110 98 97 96 Resp B/P (MAP) 77/45 74/54 80/61 Pulse Ox 100 100 100 100 O2 Delivery Mechanical Ventilator Mechanical Ventilator Mechanical Ventilator O2 Flow Rate 40.00 40.00 40.00 FiO2 40 01/08/17 01/08/17 01/08/17 01/08/17 01:00 01:00 02:00 02:11 Temp 101.3 100.2 Pulse 96 92 92 92 Resp 20 B/P (MAP) 122/46 141/53 Pulse Ox 100 100 100 O2 Delivery Mechanical Ventilator Mechanical Ventilator O2 Flow Rate 40.00 40.00 FiO2 40 01/08/17 01/08/17 01/08/17 01/08/17 03:00 03:40 04:00 04:26 Temp 99.8 99.5 99.5 Pulse 89 84 85 82 Resp B/P (MAP) 125/52 116/74 122/49 Pulse Ox 100 100 100 100 O2 Delivery Mechanical Ventilator Mechanical Ventilator Mechanical Ventilator O2 Flow Rate 40.00 40.00 40.00 FiO2 40 01/08/17 01/08/17 05:00 06:00 Temp 98.9 98.4 Pulse 80 85 Resp B/P (MAP) 116/50 134/55 Pulse Ox 100 100 O2 Delivery Mechanical Ventilator Mechanical Ventilator O2 Flow Rate 40.00 40.00 Capillary Refill : Less Than 3 Seconds General Appearance: no apparent distress (But intubated) Eyes: Bilateral Eye Normal Inspection Respiratory: lungs clear Cardiovascular: regular rate, rhythm Gastrointestinal: soft, distended (Slight) Rectal: deferred Skin: normal color, warm/dry Assessment/Plan Assessment/Plan Admission Dx 1. Septic shock 2. Urosepsis 3. Dehydration 4. Diabetes mellitus--known 5. Hypomagnesemia Plan 1. Septic shock -Fluid rehydration -Initiation of antibiotics -Intubated requiring respiratory support 2. Urosepsis -Initiation of ceftriaxone vancomycin and Zosyn has been performed through the emergency department 3. Dehydration -Fluid rehydration 4. Diabetes mellitus--known -Monitor glucose 5. Hypomagnesemia -Replacement Diagnosis/Problems: Clinical Quality Measures DVT/VTE Risk/Contraindication: Risk Factor Score Per Nursin RFS Level Per Nursing on Admit: 4+=Very High MISSAEL HART MD Jan 08, 2017 07:06
--- NOTE | 2017-01-08 07:16 | Diagnostic Imaging Report ---
INDICATION: Central line, film is timed 5:12 a.m. An ET tube is just above the selena in the lower trachea and OG or NG catheter is in the stomach. There is no visualization of a reportedly placed central line. There is no pneumothorax. IMPRESSION: Support apparatus positioned as described. Nonidentification of a central venous catheter; correlate clinically. No effusion or pneumothorax. Dictated by: Dictated on workstation # [id number]
--- NOTE | 2017-01-08 07:52 | Diagnostic Imaging Report ---
INDICATION: Central line placement FINDINGS: This exam is timed 1252h. FINDINGS: There is no visualization of reported central line, the provided history of it placed via the neck or lower extremity. Correlate clinically. An ET tube and NG catheter in good position. IMPRESSION: No visualization of reported central line catheter. The ET tube and NG catheter are in good position. Dictated by: Dictated on workstation # [id number]
[2017-01-08] MEDS: PANTOPRAZOLE 40 MG/10 ML (PROTONIX) VIAL IV SCH (07:54)
[2017-01-08 08:18] LABS: BILIRUBIN,URINE 2+ (NEGATIVE)
--- NOTE | 2017-01-08 08:19 | Diagnostic Imaging Report ---
INDICATION: Sepsis ET tube is deep extending into the origin of the right mainstem. As the currently positioned it should be withdrawn about 2 cm. Some basilar and perihilar partial atelectasis increased. NG or OG catheter is in the stomach. There is abnormal small bowel dilatation with only a minimal amount of rectal air. The remaining large bowel airless. Small bowel loop diameter is averaging about 3 cm. IMPRESSION: ET tube extending into the proximal right mainstem its withdrawal of 2 cm recommended. Small bowel dilatation with no substantial large bowel gas suspicious for small bowel obstruction. Report was called to [facility] by rhett at 8:20 am. Dictated by: Dictated on workstation # [id number]
[2017-01-08] MEDS ORDERED: CYANOCOBALAMIN 500 MCG TAB (VITAMIN B-12) PO SCH (09:00)
[2017-01-08] MEDS ORDERED: FOLIC ACID 1 MG TAB PO SCH (09:00)
[2017-01-08] MEDS ORDERED: VANCOMYCIN INJECTION 1,000 MG in NS (IVPB) 250 ML IV ONE (09:15)
[2017-01-08] MEDS ORDERED: MEROPENEM 1,000 MG in NS (IVPB) 100 ML IV SCH (09:15)
--- NOTE | 2017-01-08 09:55 | Consultation-Cardiology ---
HPI-Cardiology Cardiology Consultation Date of Consultation 01/08/17 Date of Admission Time Seen by Provider: 09:48 Indication: elevated troponin level HPI 71 years old lady with history of diabetes mellitus, no known previous cardiac history, questionable history of hypertension. Patient is intubated unable to provide history, history was obtained by interviewing her family members. She is visiting her son here, for the last week she started having increasing abdominal pain and back pain, had fever and shortness of breath. Had some chest tightness. [facility] was sent to the emergency room. Upon arrival to the emergency room patient was in severe distress with acute respiratory failure. She was intubated. She was in septic shock. Currently she is sedated and intubated. Unable to provide any further history. She has history of hysterectomy according to the family, no known other history. Home Medications & Allergies Allergies: Coded Allergies: No Known Drug Allergies (Unverified , 01/07/17) Home Medication List Reviewed: Yes family will bring her medication list. TKT-Umweim-Txfbjy Hx Patient Social History Alcohol Use: Denies Use Recreational Drug Use: No Smoking Status: Never a Smoker Recent Foreign Travel: No Recent Infectious Disease Expo: No Recent Hopitalizations: No Physical Abuse Screen: No Sexual Abuse: No Immunizations Up To Date Tetanus Booster (TDap): Unknown Past Medical History as described below Family Medical History Significant Family History: No Pertinent Family Hx Family History: Colon cancer 19 FATHER ( FROM PERFORATED APPENDIX) Diabetes mellitus G8 SISTER Constitutional: other (patient is sedated and intubated, unable to provide review of systems other than what was described in history of present illness) Reviewed Test Results Reviewed Test Results Lab Laboratory Tests Test 01/07/17 19:20 01/07/17 19:27 01/07/17 19:31 01/07/17 19:50 Range/Units Glucometer 269 H 70-110 MG/DL White Blood Count 2.1 L 4.3-11.0 10^3/uL Red Blood Count 4.21 L 4.35-5.85 10^6/uL Hemoglobin 13.7 11.5-16.0 G/DL Hematocrit 42 35-52 % Mean Corpuscular Volume 101 H 80-99 FL Mean Corpuscular Hemoglobin 33 25-34 PG Mean Corpuscular Hemoglobin Concent 32 32-36 G/DL Red Cell Distribution Width 14.6 H 10.0-14.5 % Platelet Count 161 130-400 10^3/uL Mean Platelet Volume 9.7 7.4-10.4 FL Neutrophils (%) (Auto) 50 42-75 % Lymphocytes (%) (Auto) 50 H 12-44 % Monocytes (%) (Auto) 1 0-12 % Eosinophils (%) (Auto) 0 0-10 % Basophils (%) (Auto) 0 0-10 % Neutrophils # (Auto) 1.1 L 1.8-7.8 X 10^3 Lymphocytes # (Auto) 1.1 1.0-4.0 X 10^3 Monocytes # (Auto) 0.0 0.0-1.0 X 10^3 Eosinophils # (Auto) 0.0 0.0-0.3 10^3/uL Basophils # (Auto) 0.0 0.0-0.1 10^3/uL Blood Gas Puncture Site RIGHT RADIAL Blood Gas Patient Temperature 101.6 Arterial Blood pH 7.40 7.37-7.43 Arterial Blood Partial Pressure CO2 32 L 35-45 MMHG Arterial Blood Partial Pressure O2 214 H 79-93 MMHG Arterial Blood HCO3 19 L 23-27 MMOL/L Arterial Blood Total CO2 19.7 L 21.0-31.0 MMOL/L Arterial Blood Oxygen Saturation 100 94-100 % Arterial Blood Base Excess -4.8 L -2.5-2.5 MMOL/L Kaushal Test POSITIVE Blood Gas Ventilator Setting NO Blood Gas Inspired Oxygen 15 Prothrombin Time 14.0 12.2-14.7 SEC INR Comment 1.1 0.8-1.4 Activated Partial Thromboplast Time 26 24-35 SEC Sodium Level 137 135-145 MMOL/L Potassium Level 4.4 3.6-5.0 MMOL/L Chloride Level 100 98-107 MMOL/L Carbon Dioxide Level 18 L 21-32 MMOL/L Anion Gap 19 H 5-14 MMOL/L Blood Urea Nitrogen 21 H 7-18 MG/DL Creatinine 0.97 0.60-1.30 MG/DL Estimat Glomerular Filtration Rate 57 BUN/Creatinine Ratio 22 H 0-20 Glucose Level 303 H 70-105 MG/DL Lactic Acid Level 6.78 *H 0.50-2.00 MMOL/L Calcium Level 8.6 8.5-10.1 MG/DL Magnesium Level 1.7 L 1.8-2.4 MG/DL Total Bilirubin 2.4 H 0.1-1.0 MG/DL Aspartate Amino Transf (AST/SGOT) 47 H 5-34 U/L Alanine Aminotransferase (ALT/SGPT) 34 0-55 U/L Alkaline Phosphatase 118 40-136 U/L Total Creatine Kinase 32 29-168 U/L Creatine Kinase MB 0.6 <6.6 NG/ML Troponin I < 0.30 <0.30 NG/ML Total Protein 7.8 6.4-8.2 GM/DL Albumin 3.9 3.2-4.5 GM/DL Amylase Level 67 25-125 U/L Lipase 23 8-78 U/L TSH [place] Testing 1.30 0.35-4.94 UIU/ML Test 01/07/17 20:05 01/07/17 20:25 01/07/17 22:13 01/07/17 22:52 Range/Units Urine Color CASEY H Urine Clarity SLIGHTLY CLOUDY Urine pH 6.5 5-9 Urine Specific [place] 1.010 L 1.016-1.022 Urine Protein 4+ NEGATIVE Urine Glucose (UA) 2+ H NEGATIVE Urine Ketones 1+ H NEGATIVE Urine Nitrite POSITIVE H NEGATIVE Urine Bilirubin 2+ H NEGATIVE Urine Urobilinogen 4 H NORMAL MG/DL Urine Leukocyte Esterase 3+ H NEGATIVE Urine RBC (Auto) 5+ H NEGATIVE Urine RBC 5-10 H /HPF Urine WBC TNTC H /HPF Urine Squamous Epithelial Cells NONE /HPF Urine Crystals PRESENT H /LPF Urine Amorphous Sediment MOD JEFFY URATES H /LPF Urine Bacteria LARGE H /HPF Urine Casts NONE /LPF Urine Mucus SMALL H /LPF Urine Culture Indicated YES Blood Gas Puncture Site RIGHT RADIAL R RAD Blood Gas Patient Temperature 102.9 102 Arterial Blood pH 7.37 7.43 7.37-7.43 Arterial Blood Partial Pressure CO2 43 36 35-45 MMHG Arterial Blood Partial Pressure O2 188 H 162 H 79-93 MMHG Arterial Blood HCO3 24 24 23-27 MMOL/L Arterial Blood Total CO2 25.0 24.7 21.0-31.0 MMOL/L Arterial Blood Oxygen Saturation 100 100 94-100 % Arterial Blood Base Excess -0.2 -0.2 -2.5-2.5 MMOL/L Kaushal Test POSITIVE YES-POS Blood Gas Ventilator Setting YES YES Blood Gas Inspired Oxygen 60% 40% FIO2 Lactic Acid Level 3.89 *H 0.50-2.00 MMOL/L Test 01/08/17 01:22 01/08/17 01:24 01/08/17 01:30 01/08/17 04:15 Range/Units Potassium Level 2.9 L 3.4 L 3.6-5.0 MMOL/L Lactic Acid Level 4.44 *H 8.04 *H 0.50-2.00 MMOL/L Troponin I 3.26 *H <0.30 NG/ML Albumin 2.8 L 3.1 L 3.2-4.5 GM/DL Blood Gas Puncture Site L [facility] Blood Gas Patient Temperature 100.9 Arterial Blood pH 7.35 L 7.37-7.43 Arterial Blood Partial Pressure CO2 36 35-45 MMHG Arterial Blood Partial Pressure O2 157 H 79-93 MMHG Arterial Blood HCO3 19 L 23-27 MMOL/L Arterial Blood Total CO2 20.5 L 21.0-31.0 MMOL/L Arterial Blood Oxygen Saturation 99 94-100 % Arterial Blood Base Excess -4.9 L -2.5-2.5 MMOL/L Kaushal Test ART LINE Blood Gas Ventilator Setting YES Blood Gas Inspired Oxygen 40% Glucometer 232 H 70-110 MG/DL White Blood Count 8.9 4.3-11.0 10^3/uL Red Blood Count 3.27 L 4.35-5.85 10^6/uL Hemoglobin 10.7 #L 11.5-16.0 G/DL Hematocrit 33 L 35-52 % Mean Corpuscular Volume 100 H 80-99 FL Mean Corpuscular Hemoglobin 33 25-34 PG Mean Corpuscular Hemoglobin Concent 33 32-36 G/DL Red Cell Distribution Width 14.6 H 10.0-14.5 % Platelet Count 119 L 130-400 10^3/uL Mean Platelet Volume 10.4 7.4-10.4 FL Neutrophils (%) (Auto) 82 H 42-75 % Lymphocytes (%) (Auto) 12 12-44 % Monocytes (%) (Auto) 5 0-12 % Eosinophils (%) (Auto) 2 0-10 % Basophils (%) (Auto) 0 0-10 % Neutrophils # (Auto) 7.2 1.8-7.8 X 10^3 Lymphocytes # (Auto) 1.1 1.0-4.0 X 10^3 Monocytes # (Auto) 0.4 0.0-1.0 X 10^3 Eosinophils # (Auto) 0.2 0.0-0.3 10^3/uL Basophils # (Auto) 0.0 0.0-0.1 10^3/uL Neutrophils % (Manual) 52 % Lymphocytes % (Manual) 15 % Monocytes % (Manual) 5 % Eosinophils % (Manual) 0 % Basophils % (Manual) 0 % Metamyelocytes % 2 % Band Neutrophils 26 % Toxic Granulation 1+ Polychromasia SLIGHT Anisocytosis SLIGHT Prothrombin Time 20.5 H 12.2-14.7 SEC INR Comment 1.8 H 0.8-1.4 Activated Partial Thromboplast Time 39 H 24-35 SEC Sodium Level 140 135-145 MMOL/L Chloride Level 110 #H 98-107 MMOL/L Carbon Dioxide Level 12 L 21-32 MMOL/L Anion Gap 18 H 5-14 MMOL/L Blood Urea Nitrogen 22 H 7-18 MG/DL Creatinine 1.33 H 0.60-1.30 MG/DL Estimat Glomerular Filtration Rate 40 BUN/Creatinine Ratio 17 0-20 Glucose Level 279 H 70-105 MG/DL Calcium Level 6.8 L 8.5-10.1 MG/DL Phosphorus Level 3.2 2.3-4.7 MG/DL Magnesium Level 2.3 1.8-2.4 MG/DL Total Bilirubin 3.9 H 0.1-1.0 MG/DL Aspartate Amino Transf (AST/SGOT) 278 H 5-34 U/L Alanine Aminotransferase (ALT/SGPT) 129 H 0-55 U/L Alkaline Phosphatase 62 40-136 U/L Total Protein 5.3 L 6.4-8.2 GM/DL Test 01/08/17 04:20 01/08/17 06:50 01/08/17 07:53 Range/Units Blood Gas Puncture Site L RAD MYLENE Blood Gas Patient Temperature 99.5 Arterial Blood pH 7.29 *L 7.37-7.43 Arterial Blood Partial Pressure CO2 31 L 35-45 MMHG Arterial Blood Partial Pressure O2 143 H 79-93 MMHG Arterial Blood HCO3 14 *L 23-27 MMOL/L Arterial Blood Total CO2 15.3 L 21.0-31.0 MMOL/L Arterial Blood Oxygen Saturation 99 94-100 % Arterial Blood Base Excess -10.7 L -2.5-2.5 MMOL/L Kaushal Test ART LINE Blood Gas Ventilator Setting YES Blood Gas Inspired Oxygen 40% Troponin I 5.98 *H <0.30 NG/ML Lactic Acid Level 9.72 *H 0.50-2.00 MMOL/L Radiology NAME: BABITA [facility]ASON [facility] REC#: [id number] PT STATUS: ADM IN : 1945 PHYSICIAN: ALEJANDRO PRINCE DO ADMIT DATE: 01/07/17/ICU Signed Date of Exam: 01/07/17 CHEST 1 VIEW, AP/PA ONLY INDICATION: Intubated, shortness of breath COMPARISON: None FINDINGS: Single view of the chest demonstrates ET tube in the midtrachea. There is an NG tube in the stomach. The lungs are clear. There is no pneumothorax, effusion or infiltrate. There is no overt pulmonary edema. IMPRESSION: Well-positioned support lines. No acute cardiopulmonary findings. Dictated by: Dictated on workstation # [id number] Dict: 01/07/172014 Trans: 01/07/172037 Interpreted by: JEN LOPEZ Electronically signed by: JEN LOPEZ 01/07/172037 ECG Impression ECG Initial ECG Rhythm: Normal Sinus, S.Tach Initial ECG Intervals: Normal Initial ECG Impression: Normal Physical Exam Vital Signs Vital Sign - Last 12Hours 01/06/17 01/07/17 21:03 19:21 Temp 101.6 Pulse 122 Resp 36 B/P (MAP) 129/63 Pulse Ox 100 O2 Delivery Mechanical Ventilator O2 Flow Rate 15.00 FiO2 60 Capillary Refill : Less Than 3 Seconds General Appearance: WD/WN, Severe Distress, Other (sedated and intubated) Eyes: Bilateral Eye EOMI, Bilateral Eye Normal Inspection, Bilateral Eye PERRL HEENT: Normal ENT Inspection, Pharynx Normal Neck: Normal Inspection, Supple Respiratory: No Respiratory Distress, Crackles, Other (intubated) Cardiovascular: Regular Rate, Rhythm, No Edema, No Gallop, No JVD, No Murmur, Normal Peripheral Pulses Gastrointestinal: No Organomegaly, Soft, Abnormal Bowel Sounds Back: Normal Inspection Extremity: Normal Capillary Refill, Normal Inspection, Non Tender, No Calf Tenderness, No Pedal Edema Neurologic/Psychiatric: Other (sedated and intubated) Skin: Normal Color, Warm/Dry Lymphatic: No Adenopathy A/P-Cardiology Admission Diagnosis Septic shock Urosepsis Acute respiratory failure Elevated troponin levels Assessment/Plan Urosepsis, septic shock, started on pressors and antibiotics. Continue to monitor closely, monitor lactic acid. Acute respiratory failure, intubated, ventilator dependent. Managed by hospitalist and stationary plant operators Elevated troponin level. EKG did not show any acute abnormality, has multiple risk factors for coronary artery disease including diabetes, patient unable hypertension, questionable hyperlipidemia. I will continue monitoring EKG closely, monitor troponin trend. The troponin elevation is probably due to septic shock and hypoxemia. Hypotension, secondary to septic shock. Blood pressure is better at this time. Continue to monitor and adjust pressors as needed. Acute renal failure, continue with aggressive IV fluids, monitor renal function closely. Elevated liver enzymes, probably secondary to septic shock, monitor trends. History of diabetes mellitus Multiorgan failure secondary to septic shock. Guarded prognosis. Clinical Quality Measures DVT/VTE Risk/Contraindication: Risk Factor Score Per Nursin RFS Level Per Nursing on Admit: 4+=Very High MARCIA ROSE MD Jan 08, 2017 09:55
[2017-01-08] MEDS ORDERED: MEROPENEM 500 MG/NS 100 ML IVPB IV SCH ×2 (10:00)
--- NOTE | 2017-01-08 11:34 | Consultation-Hospitalist ---
HPI History of Present Illness: HPI/Chief Complaint CC: Urosepsis with acute respiratory failure with septic shock HPI: This is a 71-year-old white female with known history of diabetes mellitus the just moved here one month ago from [facility] there was originally admitted to the [facility] service last night from the emergency room after she was intubated and diagnosed with septic shock from urosepsis. EICU facilitated care throughout the night and maintained Zosyn empiric treatment for Escherichia coli that was resulted in the blood culture already on preliminary report. I was asked to provide consultation and medical management for critically ill intubated patient. There was a concern when I was corresponding with the ICU nurse who reported 8400 mL of IV fluids per septic shock protocol had been infused and patient still resulted in pressor therapy requirement due to SBP of 60s when she was admitted. That was improved overall with IV fluid resuscitation and pressor therapy quickly after intubated but I noted her creatinine was normal at 0.97 on admission now it's 1.33 and now nearly completely oliguric with only 50 mL of urine in the past 5 hours. I explained the situation to the family who agreed for higher level of care considering I did not have an tire retreader on duty currently in addition she would need nephrology if she proceeded on with elevated creatinine and complete oliguric status. I spoke to [facility] tire retreader updated the physician on all the clinical data and he recommended heparin drip for non-ST elevation AR and maintain all supportive therapy in addition to ventilator and accepted the transfer graciously. Source: family, RN/MD Exam Limitations: clinical condition (intubated) Date Seen 01/08/17 Attending Physician Missael Tamayo MD PCP No,Local Physician Referring Physician Date of Admission Jan 07, 2017 at 20:34 Home Medications & Allergies Home Medications Reviewed patient Home Medication Reconciliation Form Allergies Allergies Coded Allergies No Known Drug Allergies (Unverified01/07/17) Past Abaqsnw-Jkybhh-Nafkmb Hx Patient Social History Marrital Status: single Employed/Student: unemployed Alcohol Use: Denies Use Recreational Drug Use: No Smoking Status: Never a Smoker Physical Abuse Screen: No Sexual Abuse: No Recent Foreign Travel: No Contact w/other who traveled: No Recent Hopitalizations: No Recent Infectious Disease Expo: No Immunizations Up To Date Tetanus Booster (TDap): Unknown Seasonal Allergies Seasonal Allergies: No Surgeries HX Surgeries: Yes (UNKNOWN ABDOMINAL SURGERY--HAS LOW ABDOMEN MIDLINE SCAR) Respiratory Hx Respiratory Disorders: No Cardiovascular Hx Cardiovascular Disorders: No Neurological Hx Neurological Disorders: No Reproductive System : No Genitourinary Hx Genitourinary Disorders: No Gastrointestinal Hx Gastrointestinal Disorders: No Musculoskeletal Hx Musculoskeletal Disorders: No Endocrine Hx Endocrine Disorders: Yes Endocrine Disorders: Diabetes, Insulin dep HEENT HX ENT Disorders: No Cancer Hx Cancer: No Psychosocial Hx Psychiatric Problems: No Integumentary HX Skin/Integumentary Disorder: No Blood Transfusions Hx Blood Disorders: No Family Medical History Significant Family History: No Pertinent Family Hx Family Hx: Colon cancer 19 FATHER ( FROM PERFORATED APPENDIX) Diabetes mellitus G8 SISTER Review of Systems Date Seen by Provider: Jan 08, 2017 Time Seen by Provider: 11:00 ROS-Unable to Obtain: intubated Constitutional: see HPI Physical Exam Physical Exam Vital Signs Vital Sign - Last 12Hours 01/06/17 01/07/17 21:03 19:21 Temp 101.6 Pulse 122 Resp 36 B/P (MAP) 129/63 Pulse Ox 100 O2 Delivery Mechanical Ventilator O2 Flow Rate 15.00 FiO2 60 Capillary Refill : Less Than 3 Seconds General Appearance: WD/WN, Chronically ill, Obese Neck: Supple Respiratory: No Accessory Muscle Use, No Respiratory Distress, Crackles, Decreased Breath Sounds, Other (on vent) Cardiovascular: No Edema, No Gallop, No JVD, No Murmur, Normal Peripheral Pulses, Tachycardia Gastrointestinal: Abnormal Bowel Sounds (decreased BS) Extremity: Slow Capillary Refill Neurologic/Psychiatric: Other (sedated on Diprivan) Skin: Cool, Damp Lymphatic: No Adenopathy Results Results/Procedures Lab Laboratory Tests 01/07/17 19:27 01/07/17 19:50 01/08/17 01:22 01/08/17 04:15 Assessment/Plan Admission Diagnosis Assessment: Septic shock due to Escherichia coli urosepsis with acute respiratory failure requiring intubation shortly after ER arrival Non-ST elevation with elevated troponin of 5 New onset acute renal failure with oliguria Diabetes mellitus known history Concern for possible small bowel obstruction versus ileus on x-ray Obesity Thrombocytopenia Elevated liver enzymes due to shock Coagulopathy INR 1.8 due to sepsis Anemia Assessment and Plan Plan: Start heparin protocol without bolus per tire retreader recommendations Maintain meropenem and vancomycin Maintain aggressive IV fluids Ventilator management Pressor therapy Transfer to higher level care for nephrology and tire retreader Clinical Quality Measures DVT/VTE Risk/Contraindication: Risk Factor Score Per Nursin RFS Level Per Nursing on Admit: 4+=Very High MAY TORRES DO Jan 08, 2017 11:34
--- NOTE | 2017-01-08 11:39 | OPERATIVE REPORT ---
DATE OF SERVICE: 01/08/2017 PREOPERATIVE DIAGNOSIS: Severe sepsis with septic shock. POSTOPERATIVE DIAGNOSIS: Severe sepsis with septic shock. PROCEDURE: Attempted right internal jugular vein placement with ultrasound guidance, left femoral vein central line placement using ultrasound guidance. SURGEON: Dr. Wright. ANESTHESIA: Local 1% lidocaine. ESTIMATED BLOOD LOSS: Minimal. COMPLICATIONS: None. INDICATIONS: The patient is a 71-year-old female who presented to the emergency department with severe sepsis with septic shock, UTI, diabetes, acute respiratory failure. She was intubated. She became hypotensive requiring pressor support. A central line was requested to be placed. Consent was obtained. PROCEDURE: The patient was prepped and draped in sterile fashion. Timeout was performed. Local anesthetic was infiltrated into the right neck. The right internal jugular vein was attempted to be accessed 3 times; however, this was unable to be accessed at this time. After these attempts were made, it was decided to go through the left femoral vein. The area was prepped and draped in sterile fashion. Using ultrasound-guidance, the left femoral vein was then accessed, dark, nonpulsatile blood was withdrawn. The guidewire was inserted through the needle and the needle was removed. A small stab incision was made at the insertion point and a dilator was advanced over the wire and removed. The triple lumen catheter was then inserted over the guidewire and the guidewire was removed. All ports were accessed and flushed without difficulty. The triple lumen catheter was then secured and the area was then cleaned and dried and a sterile bandage was applied. The patient tolerated the procedure well without any complications. Chest x-ray pending due to attempt of right internal jugular vein. The central line in the left femoral was able to be used at this time. We will leave this for no longer than 72 hours and if still requiring central venous access, we would obtain a PICC line and discontinue the femoral line. Job ID: [id number] DocumentID: [id number] Dictated Date: 01/08/2017 00:51:25 Welding Rod [employer] Date: 01/08/2017 02:44:42 Dictated By: MAHI WRIGHT DO
[2017-01-08] MEDS ORDERED: inSUlin (REGULAR) HUMAN 1 UNIT/0.01 ML (CHARGE PER UNIT) SC SCH (12:00)
--- NOTE | 2017-01-08 14:04 | Progress Note ---
Subjective Date Seen by Provider: Jan 08, 2017 Time Seen by Provider: 13:20 Subjective/Events-last exam Patient remains intubated. Requiring pressor support. Oliguric with approximately 50 mL urine in last 5 hours despite fluid resuscitation. Liver enzymes increasing along with cr. Lactic acid increasing. Dr. Negrete has arranged for transfer to higher level of care due to no electric welder helper and nephrology. No family at bedside. Objective Exam Vital Signs Date Time Temp Pulse Resp B/P (MAP) Pulse Ox O2 Delivery O2 Flow Rate FiO2 01/08/17 12:12 87 27 98 28 01/08/17 11:55 100 Mechanical Ventilator 30.00 01/08/17 11:54 96.5 89 26 111/51 98 Mechanical Ventilator 30.00 01/08/17 10:06 86 22 100 28 01/08/17 10:00 96.9 86 22 106/52 100 Mechanical Ventilator 30.00 01/08/17 08:32 86 25 100 30 01/08/17 08:00 100 Mechanical Ventilator 30.00 01/08/17 07:00 88 01/08/17 06:58 85 24 100 40 01/08/17 06:00 98.4 85 20 134/55 100 Mechanical Ventilator 40.00 01/08/17 05:00 98.9 80 21 116/50 100 Mechanical Ventilator 40.00 01/08/17 04:26 82 23 100 40 01/08/17 04:00 100 Mechanical Ventilator 40.00 01/08/17 04:00 99.5 85 19 122/49 100 Mechanical Ventilator 40.00 01/08/17 03:40 99.5 84 18 116/74 100 Mechanical Ventilator 40.00 01/08/17 03:00 99.8 89 22 125/52 100 Mechanical Ventilator 40.00 01/08/17 02:11 92 20 100 40 01/08/17 02:00 100.2 92 20 141/53 100 Mechanical Ventilator 40.00 01/08/17 01:00 92 01/08/17 01:00 101.3 96 20 122/46 100 Mechanical Ventilator 40.00 01/08/17 00:13 96 22 100 40 01/08/17 00:00 101.6 97 24 80/61 100 Mechanical Ventilator 40.00 01/07/17 23:30 101.8 98 19 74/54 100 Mechanical Ventilator 40.00 01/07/17 23:00 102.2 110 20 77/45 100 Mechanical Ventilator 40.00 01/07/17 22:45 102.5 120 87/45 100 Mechanical Ventilator 40.00 01/07/17 22:30 102.7 116 86/37 100 Mechanical Ventilator 40.00 01/07/17 22:15 102.9 114 76/42 100 Mechanical Ventilator 40.00 01/07/17 22:14 117 21 100 40 01/07/17 22:00 102.9 125 100 Mechanical Ventilator 60.00 01/07/17 21:45 102.7 124 87/39 100 Mechanical Ventilator 60.00 01/07/17 21:30 102.5 128 19 92/38 100 Mechanical Ventilator 60.00 01/07/17 21:18 126 17 100 60 01/07/17 21:15 125 34 107/50 100 Mechanical Ventilator 60.00 01/07/17 21:00 102.5 147 13 91 Mechanical Ventilator 60.00 01/07/17 20:00 102.5 146 14 99/38 98 Mechanical Ventilator 60.00 01/07/17 19:52 154 14 100 60 01/07/17 19:47 101.6 01/07/17 19:21 101.6 122 36 129/63 84 Non Rebreather 15.00 01/07/17 19:21 84 Nonrebreather 15.00 I & O 01/08/17 07:00 Intake Total 5743 ml Output Total 660 ml Balance 5083 ml Capillary Refill : Less Than 3 Seconds General Appearance: WD/WN, Chronically ill HEENT: Normal ENT Inspection, Pharynx Normal Neck: Supple Respiratory: No Accessory Muscle Use, No Respiratory Distress, Crackles, Decreased Breath Sounds, Other (intubated on vent) Cardiovascular: No Edema, No JVD, Normal Peripheral Pulses, Tachycardia Gastrointestinal: soft, distended (Slight distention compared to last night.) Extremity: Slow Capillary Refill Neurologic/Psychiatric: Other (sedated on vent) Skin: Cool Lymphatic: No Adenopathy Results Lab Laboratory Tests 01/07/17 19:20: Glucometer 269H 01/07/17 19:27: White Blood Count 2.1L, Red Blood Count 4.21L, Hemoglobin 13.7, Hematocrit 42, Mean Corpuscular Volume 101H, Mean Corpuscular Hemoglobin 33, Mean Corpuscular Hemoglobin Concent 32, Red Cell Distribution Width 14.6H, Platelet Count 161, Mean Platelet Volume 9.7, Neutrophils (%) (Auto) 50, Lymphocytes (%) (Auto) 50H , Monocytes (%) (Auto) 1, Eosinophils (%) (Auto) 0, Basophils (%) (Auto) 0, Neutrophils # (Auto) 1.1L, Lymphocytes # (Auto) 1.1, Monocytes # (Auto) 0.0, Eosinophils # (Auto) 0.0, Basophils # (Auto) 0.0 01/07/17 19:31: Blood Gas Puncture Site RIGHT RADIAL, Blood Gas Patient Temperature 101.6, Arterial Blood pH 7.40, Arterial Blood Partial Pressure CO2 32L, Arterial Blood Partial Pressure O2 214H, Arterial Blood HCO3 19L, Arterial Blood Total CO2 19.7L, Arterial Blood Oxygen Saturation 100, Arterial Blood Base Excess -4.8L, Ak[place]al Test POSITIVE, Blood Gas Ventilator Setting NO, Blood Gas Inspired Oxygen 15 01/07/17 19:50: Prothrombin Time 14.0, INR Comment 1.1, Activated Partial Thromboplast Time 26, Sodium Level 137, Potassium Level 4.4, Chloride Level 100, Carbon Dioxide Level 18L, Anion Gap 19H, Blood Urea Nitrogen 21H, Creatinine 0.97, Estimat Glomerular Filtration Rate 57, BUN/Creatinine Ratio 22H, Glucose Level 303H, Lactic Acid Level 6.78*H, Calcium Level 8.6, Magnesium Level 1.7L, Total Bilirubin 2.4H, Aspartate Amino Transf (AST/SGOT) 47H, Alanine Aminotransferase (ALT/SGPT) 34, Alkaline Phosphatase 118, Total Creatine Kinase 32, Creatine Kinase MB 0.6, Troponin I < 0.30, Total Protein 7.8, Albumin 3.9, Amylase Level 67, Lipase 23, TSH [place] Testing 1.30 01/07/17 20:05: Urine Color AMBERH, Urine Clarity SLIGHTLY CLOUDY, Urine pH 6.5, Urine Specific [place] 1.010L, Urine Protein 4+, Urine Glucose (UA) 2+H, Urine Ketones 1+H, Urine Nitrite POSITIVEH, Urine Bilirubin 2+H, Urine Urobilinogen 4H, Urine Leukocyte Esterase 3+H, Urine RBC (Auto) 5+H, Urine RBC 5-10H, Urine WBC TNTCH, Urine Squamous Epithelial Cells NONE, Urine Crystals PRESENTH, Urine Amorphous Sediment MOD JEFFY URATESH, Urine Bacteria LARGEH, Urine Casts NONE, Urine Mucus SMALLH, Urine Culture Indicated YES 01/07/17 20:25: Blood Gas Puncture Site RIGHT RADIAL, Blood Gas Patient Temperature 102.9, Arterial Blood pH 7.37, Arterial Blood Partial Pressure CO2 43, Arterial Blood Partial Pressure O2 188H, Arterial Blood HCO3 24, Arterial Blood Total CO2 25.0 , Arterial Blood Oxygen Saturation 100, Arterial Blood Base Excess -0.2, [place] Test POSITIVE, Blood Gas Ventilator Setting YES, Blood Gas Inspired Oxygen 60% 01/07/17 22:13: Lactic Acid Level 3.89*H 01/07/17 22:52: Blood Gas Puncture Site R RAD, Blood Gas Patient Temperature 102, Arterial Blood pH 7.43, Arterial Blood Partial Pressure CO2 36, Arterial Blood Partial Pressure O2 162H, Arterial Blood HCO3 24, Arterial Blood Total CO2 24.7, Arterial Blood Oxygen Saturation 100, Arterial Blood Base Excess -0.2, [place]hal Test YES-POS, Blood Gas Ventilator Setting YES, Blood Gas Inspired Oxygen 40% FIO2 01/08/17 01:22: Potassium Level 2.9L, Lactic Acid Level 4.44*H, Troponin I 3.26*H, Albumin 2.8L 01/08/17 01:24: Blood Gas Puncture Site L RAD MYLENE, Blood Gas Patient Temperature 100.9, Arterial Blood pH 7.35L, Arterial Blood Partial Pressure CO2 36, Arterial Blood Partial Pressure O2 157H, Arterial Blood HCO3 19L, Arterial Blood Total CO2 20.5L, Arterial Blood Oxygen Saturation 99, Arterial Blood Base Excess -4.9L, K[place]hal Test ART LINE, Blood Gas Ventilator Setting YES, Blood Gas Inspired Oxygen 40% 01/08/17 01:30: Glucometer 232H 01/08/17 04:15: Potassium Level 3.4L, Lactic Acid Level 8.04*H, Albumin 3.1L, White Blood Count 8.9, Red Blood Count 3.27L, Hemoglobin 10.7#L, Hematocrit 33L, Mean Corpuscular Volume 100H, Mean Corpuscular Hemoglobin 33, Mean Corpuscular Hemoglobin Concent 33, Red Cell Distribution Width 14.6H, Platelet Count 119L, Mean Platelet Volume 10.4, Neutrophils (%) (Auto) 82H, Lymphocytes (%) (Auto) 12, Monocytes (%) (Auto) 5, Eosinophils (%) (Auto) 2, Basophils (%) (Auto) 0, Neutrophils # (Auto) 7.2, Lymphocytes # (Auto) 1.1, Monocytes # (Auto) 0.4, Eosinophils # (Auto) 0.2, Basophils # (Auto) 0.0, Neutrophils % (Manual) 52, Lymphocytes % (Manual) 15, Monocytes % (Manual) 5, Eosinophils % (Manual) 0, Basophils % (Manual) 0, Metamyelocytes % 2, Band Neutrophils 26, Toxic Granulation 1+, Polychromasia SLIGHT, Anisocytosis SLIGHT, Prothrombin Time 20.5H, INR Comment 1.8H, Activated Partial Thromboplast Time 39H, Sodium Level 140, Chloride Level 110#H, Carbon Dioxide Level 12L, Anion Gap 18H, Blood Urea Nitrogen 22H, Creatinine 1.33H, Estimat Glomerular Filtration Rate 40, BUN/ Creatinine Ratio 17, Glucose Level 279H, Calcium Level 6.8L, Phosphorus Level 3.2, Magnesium Level 2.3, Total Bilirubin 3.9H, Aspartate Amino Transf (AST/SGOT ) 278H, Alanine Aminotransferase (ALT/SGPT) 129H, Alkaline Phosphatase 62, Total Protein 5.3L 01/08/17 04:20: Blood Gas Puncture Site Markel CHAKRABORTY, Blood Gas Patient Temperature 99.5, Arterial Blood pH 7.29*L, Arterial Blood Partial Pressure CO2 31L, Arterial Blood Partial Pressure O2 143H, Arterial Blood HCO3 14*L, Arterial Blood Total CO2 15.3L, Arterial Blood Oxygen Saturation 99, Arterial Blood Base Excess - 10.7L, K[place]hal Test ART LINE, Blood Gas Ventilator Setting YES, Blood Gas Inspired Oxygen 40% 01/08/17 06:50: Troponin I 5.98*H 01/08/17 07:53: Lactic Acid Level 9.72*H 01/08/17 11:06: Glucometer 158H 01/08/17 12:14: Lactic Acid Level 9.32*H Microbiology 01/07/17 Blood Culture - Preliminary, Resulted Gram Negative Thierry See Comments 01/07/17 Urine Culture - Preliminary, Resulted Probable E.coli Assessment/Plan Assessment/Plan Assessment/Plan severe sepsis c septic shock due to urosepesis, UTI, DM, acute resp failure requiring intubation, elevated liver enzymes requiring pressure support abdominal x ray demonstration small bowel approximately 3 cm diameter questioning ileus or small bowel obstruction due to patient condition Dr. Negrete has arranged transfer to [facility] for nephrology and electric welder helper Clinical Quality Measures DVT/VTE Risk/Contraindication: Risk Factor Score Per Nursin RFS Level Per Nursing on Admit: 4+=Very High MAHI SALDIVAR DO Jan 08, 2017 14:04
[2017-01-08] MEDS ORDERED: VANCOMYCIN INJECTION 1,000 MG in NS (IVPB) 250 ML IV SCH (23:00)
[2017-01-09] MEDS ORDERED: TROUGH ORDER-PHARMACY XX NR (22:00)
== END 2017-01-08 14:07 | disposition short-term general hospital (02) | DRG 871 ==
LOC: ER 19:07 → ICU 20:34
PROVIDERS: ADMIT Family Medicine; ATTEND Family Medicine
PROC: 5A1935Z Respiratory Ventilation, Less than 24 Consecutive Hours (ICD-10-PCS; principal; 2017-01-07)
DX: A41.51 Sepsis due to Escherichia coli [E. coli] (principal); R65.21 Severe sepsis with septic shock; N39.0 Urinary tract infection, site not specified; E87.2 Acidosis; E86.0 Dehydration; E11.9 Type 2 diabetes mellitus without complications; E83.42 Hypomagnesemia; J96.00 Acute respiratory failure, unspecified whether with hypoxia or hypercapnia; N17.9 Acute kidney failure, unspecified; R34 Anuria and oliguria; D69.6 Thrombocytopenia, unspecified; E66.9 Obesity, unspecified; D64.9 Anemia, unspecified; Z79.4 Long term (current) use of insulin; Z68.30 Body mass index [BMI] 30.0-30.9, adult
CPT/HCPCS: 36415; 71010; 74020; 80053; 81000; 82040; 82150; 82550; 82553; 82805; 82962; 83605; 83690; 83735; 84100; 84132; 84443; 84484; 85007; 85025; 85027; 85610; 85730; 87040; 87070; 87077; 87088; 87186; 87205; 93005; 93041; 94002; 94003; 94799